=== PATIENT | male | born 1955 | race African-American/Black ===

== ENCOUNTER 2017-05-18 12:32 | Emergency (ER) | payer OTHER ==
[~2017-05-18] VITALS: Ht 185.4 cm; Wt 97.7 kg
[~2017-05-18 12:32] MED LIST: AMLO10TA55 PO; BICA50TA3 PO; QUET25TA PO
[2017-05-18 15:37] LABS: CALCIUM, TOTAL 9.1 mg/dL (8.8-10.5); CHLORIDE 103 mmol/L (98-107); CREATININE 0.96 mg/dL (0.60-1.30); GLOMERULAR FILTR. RATE CALC > 60 mL/min (>60); GLUCOSE,RANDOM 95 mg/dL (70-110); SODIUM SERUM 140 mmol/L (136-145); UREA NITROGEN, BLOOD 16 mg/dL (7-18)
[2017-05-18 15:54] LABS: ANION GAP 10 mmol/L (8-16); CARBON DIOXIDE 27 mmol/L (22-29)
[2017-05-18 16:00] VITALS: BP 118/68
== END 2017-05-18 16:15 | disposition home or self-care (01) ==
LOC: EMS 12:36
DX: R25.2 Cramp and spasm (principal); M79.652 Pain in left thigh; E11.9 Type 2 diabetes mellitus without complications; I10 Essential (primary) hypertension; Z85.46 Personal history of malignant neoplasm of prostate; Z87.891 Personal history of nicotine dependence
CPT/HCPCS: 99283

== ENCOUNTER 2017-06-19 03:31 | Emergency (ER) | payer OTHER ==
[~2017-06-19] VITALS: Ht 185.4 cm; Wt 95.5 kg
[2017-06-19 03:32] VITALS: BP 146/94
[2017-06-19 03:47] LABS: GLUCOSE,POINT OF CARE 102 MG/DL (70-110)
[2017-06-19] MEDS ORDERED: GuaiFENesin/D-METHORPHAN [SUGAR-FREE] 200-20MG/10 ML SYRUP UDCUP PO ONE (04:00)
[2017-06-19] MEDS ORDERED: ACETAMINOPHEN 500 MG TABLET PO ONE (04:00)
== END 2017-06-19 04:25 | disposition home or self-care (01) ==
LOC: EMS 03:33
DX: J40 Bronchitis, not specified as acute or chronic (principal); J06.9 Acute upper respiratory infection, unspecified; J02.9 Acute pharyngitis, unspecified; E11.9 Type 2 diabetes mellitus without complications; I10 Essential (primary) hypertension; Z87.891 Personal history of nicotine dependence
CPT/HCPCS: 82962; 99283

== ENCOUNTER 2017-10-05 11:17 | Emergency (ER) | payer OTHER ==
[~2017-10-05] VITALS: Ht 185.4 cm; Wt 100.0 kg
[2017-10-05] MEDS ORDERED: FURO40 PO (11:26)
[2017-10-05 11:32] LABS: GLUCOSE,POINT OF CARE 121 MG/DL (70-110)
[2017-10-05 13:17] VITALS: BP 133/67
== END 2017-10-05 14:04 | disposition home or self-care (01) ==
LOC: EMS 11:18
DX: R60.0 Localized edema (principal); E11.9 Type 2 diabetes mellitus without complications; I10 Essential (primary) hypertension; Z87.891 Personal history of nicotine dependence
CPT/HCPCS: 93971; 99284